=== PATIENT | male | born 1985 | race Caucasian/White ===

== ENCOUNTER 2024-09-22 07:24 | Emergency (ER) | payer SELFPAY ==
[~2024-09-22] VITALS: Ht 175.3 cm; Wt 80.0 kg
[2024-09-22 07:30] VITALS: O2SAT 98
[2024-09-22] MEDS: ONDANSETRON HCL 4MG/2ML INJ IV ONE (07:55)
[2024-09-22] MEDS: MORPHINE SULFATE 4 MG/ML INJ (FOR IV/IM USE) IV ONE (07:55)
[2024-09-22] MEDS: TETANUS, DIPHTHERIA, PERTUSSIS VAC/PF 0.5ML (>10YR OLD) IM ONE (07:56)
[2024-09-22 08:01] LABS: INR 0.9; PROTHROMBIN TIME 10.3 sec (9.6-11.0)
[2024-09-22 08:05] LABS: CHLORIDE 108 mEq/L (98-107); POTASSIUM 3.6 mEq/L (3.5-5.1); SODIUM 141 mEq/L (136-145)
[2024-09-22 08:06] LABS: CARBON DIOXIDE 28 mEq/L (21-32)
[2024-09-22 08:07] LABS: CALCIUM 9.1 mg/dL (8.7-10.4)
[2024-09-22 08:08] LABS: BASOPHILS % 0.6 % (0.0-2.0); EOSINOPHILS % 2.2 % (0.0-5.0); HEMATOCRIT. 40.4 % (42.0-52.0); HEMOGLOBIN. 13.2 g/dL (14.0-18.0); LYMPHOCYTES % 50.1 % (20.0-50.0); MEAN CORPUSCULAR HEMOGLOBIN 29.1 pg (28.0-32.0); MEAN CORPUSCULAR HGB CONC 32.6 g/dL (31.0-37.0); MEAN CORPUSCULAR VOLUME 89.3 fL (80.0-94.0); MEAN PLATELET VOLUME 7.6 fl (7.4-10.4); MONOCYTES % 8.1 % (2.0-8.0); PLATELET 415 x1000/uL (130-400); RED BLOOD CELL COUNT 4.52 mill/uL (4.7-6.1); RED CELL DISTRIBUTION WIDTH 14.1 % (11.6-14.6); WHITE BLOOD COUNT 6.7 x1000/uL (4.5-11.0)
[2024-09-22 08:11] LABS: CREATININE 0.9 mg/dL (0.6-1.3); GLUCOSE 106 mg/dL (70-105)
[2024-09-22 08:12] LABS: UREA NITROGEN BLOOD 12 mg/dL (9-23)
[2024-09-22 08:39] LABS: ETHANOL BLOOD < 10 mg/dL (<10)
[2024-09-22 08:41] LABS: BG BASE EXCESS -0.7 mmol/L (-2.0-3.0); BG CARBOXYHEMOGLOBIN 0.7 % (0.5-1.5); BG DEOXYHEMOGLOBIN 0.1 % (0.0-5.0); BG FRACTION INSPIRED OXYGEN 100; BG HCO3 ACT 24.3 mmol/L (21.0-28.0); BG METHEMOGLOBIN 0.3 % (0.5-1.5); BG OXYGEN SATURATION 99.9 % (94.0-98.0); BG OXYHEMOGLOBIN 98.9 % (94.0-98.0); BG PCO2 41.6 mmHg (35.0-48.0); BG PH 7.385 (7.350-7.450); BG PO2 524.9 mmHg (83.0-108.0); BG SAMPLE SITE RIGHT RADIAL; BG TOTAL HEMOGLOBIN 13.8 g/dL (13.5-17.5); BG VENT MODE MASK - NRB
[2024-09-22] MEDS: MORPHINE SULFATE 2 MG/ML INJ (NOT FOR IM USE) IV ONE (08:50)
[2024-09-22 10:22] VITALS: BP 117/66; PULSE 53; RESP 11; TEMP 37.16964; O2SAT 95
== END 2024-09-22 10:44 | disposition short-term general hospital (02) ==
LOC: ER 07:24
DX: T21.23XA Burn of second degree of upper back, initial encounter (principal); X08.8XXA Exposure to other specified smoke, fire and flames, initial encounter; Y93.89 Activity, other specified; Y92.89 Other specified places as the place of occurrence of the external cause; Y99.8 Other external cause status
CPT/HCPCS: 80048; 80320; 85025; 85610; 36415; 71045; 90715; 82805; 82375 ×2; 93005; 16020; 90471; 96374; 96375; 96376; 99291; 36600; J2405; J2270 ×2; Z7610; G0480